=== PATIENT | female | born 1985 | race Two or more races ===

== ENCOUNTER 2021-12-18 08:01 | Day surgery (SDC) | payer OTHER ==
[2021-12-18] MEDS ORDERED: ULTRACET PO (09:53)
[2021-12-18] MEDS ORDERED: MACROBID 100 M100 MG PO (09:53)
== END 2021-12-18 13:44 | disposition home or self-care (01) ==
LOC: CIR.AMB 08:01
PROVIDERS: ATTEND Obstetrics & Gynecology Gynecology
DX: N39.3 Stress incontinence (female) (male) (principal); Z20.822 Contact with and (suspected) exposure to COVID-19